=== PATIENT | male | born 1965 | race Two or more races ===

== ENCOUNTER 2020-03-19 13:22 | Inpatient (IN) | payer MEDICAID, OTHER ==
[~2020-03-19] VITALS: Ht 175.3 cm; Wt 71.4 kg
[2020-03-19] MEDS ORDERED: SODIUM CHLORIDE 0.9% 1,000ML IVBOLUS ONE (14:00)
--- NOTE | 2020-03-19 14:12 | NUR ---
PIV PLACED. LABS DRAWN. IVF RUNNING PER APR. WARM BLANKETS PROVIDED.
[2020-03-19 14:20] LABS: BASOPHILS % (AUTO) 1 % (0-1); EOSINOPHILS % (AUTO) 0 % (1-7); LYMPHOCYTES % (AUTO) 5 % (22-44); MEAN CORPUSCULAR HEMOGLOBIN 31.4 pg (27.5-34.5); MEAN CORPUSCULAR HGB CONC 34.2 g/dL (33.2-36.2); MEAN PLATELET VOLUME 7.5 fL (7.4-10.4); MONOCYTES % (AUTO) 4 % (2-9); NEUTROPHILS % (AUTO) 90 % (42-75); PLATELET COUNT 170 x10^3/uL (130-400); RED BLOOD COUNT 1.92 x10^6/uL (4.38-5.82); RED CELL DISTRIBUTION WIDTH 13.4 % (9.4-14.8)
--- NOTE | 2020-03-19 14:25 | NUR ---
PT PROVIDED URINE SAMPLE. UA COLLECTED AND SENT TO LAB.
[2020-03-19 14:34] LABS: ALANINE AMINOTRANSFERASE 27 U/L (12-78); ALBUMIN 2.6 g/dL (3.4-5.0); ANION GAP 17 mmol/L (5-15); CALCIUM 7.6 mg/dL (8.5-10.1); CHLORIDE 105 mmol/L (98-107)
[2020-03-19 14:37] LABS: MD NO
[2020-03-19 14:42] LABS: ALKALINE PHOSPHATASE 94 U/L (45-117); BILIRUBIN,TOTAL 0.4 mg/dL (0.2-1.0); TOTAL PROTEIN 6.4 g/dL (6.4-8.2)
[2020-03-19 14:44] LABS: MICROSCOPIC AUTO
[2020-03-19 14:50] LABS: TROPONIN I 0.431 ng/mL (0.000-0.045)
--- NOTE | 2020-03-19 14:52 | NUR ---
SECOND PIV PLACED. 2 SETS BLOOD CX DRAWN AND COLLECTED BY LAB. AT BEDSIDE TO UPDATE PT ON POC.
[2020-03-19] MEDS ORDERED: CEFDINIR 300 MG CAPSULE PO ONE (15:30)
[2020-03-19] MEDS ORDERED: METOPROLOL 1 MG/ML, 5ML IVPush PRN (15:30)
[2020-03-19] MEDS ORDERED: CEFDINIR 300 MG CAPSULE ONE (15:36)
[2020-03-19] MEDS ORDERED: METOPROLOL 1 MG/ML, 5ML ONE (15:36)
--- NOTE | 2020-03-19 15:49 | NUR ---
IR AT BEDSIDE. MD WANG FOR BLOOD TO BE TRANFUSED DURING DIALYSIS.
--- NOTE | 2020-03-19 15:50 | NUR ---
VIDEO UNIFORM PATROL POLICE OFFICER AT BEDSIDE.
[2020-03-19 15:51] LABS: INTERNATIONAL NORMALIZED RATIO 1.01 (0.93-1.1); PROTHROMBIN TIME 10.8 Seconds (9.6-11.5)
--- NOTE | 2020-03-19 15:51 | NUR ---
PT CONNECTED TO CARDIAC MONITORING SINCE UPON ARRIVAL.
--- NOTE | 2020-03-19 15:58 | NUR ---
PT REFUSING DIALYSIS PORT FROM IR. FAITH BACK AT BEDSIDE.
[2020-03-19 16:06] LABS: CHLORIDE,URINE RANDOM 47 mmol/L; POTASSIUM,URINE RANDOM 41 mmol/L; SODIUM,URINE RANDOM 38 mmol/L
[2020-03-19] MEDS ORDERED: LORazepam 2 MG/ML, 1ML ONE (16:06)
--- NOTE | 2020-03-19 16:11 | NUR ---
RECEIVED VO FROM DR SAGE FOR ATIVAN 1MG IV ONCE. MEDS ADMIN PER ORDER.
--- NOTE | 2020-03-19 16:12 | NUR ---
DR SAGE STATES TO ADMIN BLOOD WITH DIALYSIS. HOSPITALIST AT BEDSIDE.
[2020-03-19 16:17] LABS: CREATININE,URINE RANDOM 85.5 mg/dL
[2020-03-19] MEDS ORDERED: FUROSEMIDE 40 MG/4 ML ONE (16:17)
[2020-03-19] MEDS ORDERED: SODIUM BICARB IV STA (16:17)
[2020-03-19] MEDS ORDERED: CALCIUM CHLORIDE 10%, 10ML SYR ONE (16:25)
[2020-03-19] MEDS ORDERED: DEXTROSE 50%, 50ML SYRINGE ONE (16:25)
[2020-03-19] MEDS ORDERED: INSULIN SINGLE DOSE, ER ONE (16:25)
[2020-03-19] MEDS ORDERED: SODIUM BICARB 8.4%, 50ML SYRINGE ONE (16:25)
[2020-03-19] MEDS ORDERED: DEXTROSE 50%, 50ML SYRINGE IVPush ONE (16:30)
[2020-03-19] MEDS ORDERED: CALCIUM CHLORIDE 10%, 10ML SYR IVPush ONE (16:30)
[2020-03-19] MEDS ORDERED: LORazepam 2 MG/ML, 1ML IVPush ONE (16:30)
[2020-03-19] MEDS ORDERED: SODIUM BICARB 8.4%, 50ML SYRINGE IVPush ONE (16:30)
[2020-03-19] MEDS ORDERED: FUROSEMIDE 40 MG/4 ML IV ONE (16:30)
[2020-03-19] MEDS ORDERED: ALBUTEROL 0.5%, 20ML NPPB ONE (16:30)
[2020-03-19] MEDS ORDERED: INSULIN REGULAR 100 UNITS/ML, 3ML VIAL IVPush ONE (16:30)
[2020-03-19] MEDS ORDERED: ONDANSETRON 2MG/ML, 2ML IVPush PRN (17:00)
[2020-03-19] MEDS ORDERED: BISACODYL 10 MG SUPP PR PRN (17:00)
[2020-03-19] MEDS ORDERED: ONDANSETRON ODT 4 MG PO PRN (17:00)
[2020-03-19] MEDS ORDERED: POLYETHYLENE GLYCOL 17 GM PACKET PO PRN (17:00)
[2020-03-19] MEDS ORDERED: ACETAMINOPHEN 325 MG TABLET PO PRN (17:00)
[2020-03-19] MEDS ORDERED: HYDROcodone/APAP 5/325 TABLET PO PRN (17:00)
[2020-03-19] MEDS ORDERED: PHARMACY MAY ADJ FOR RENAL FX MC PRN (17:00)
[2020-03-19 17:22] LABS: CALCIUM 8.3 mg/dL (8.5-10.1)
[2020-03-19 17:26] LABS: ABSOLUTE RETICS # 0.082 x10^6/uL (0.5-1.5); RED BLOOD COUNT 1.76 x10^6/uL (4.38-5.82); RETICULOCYTE COUNT % 4.64 % (0.5-1.5)
[2020-03-19] MEDS ORDERED: ARANESP 200 MCG/ML **ESRD SQ SCH (17:30)
[2020-03-19] MEDS ORDERED: ALBUTEROL SULFATE 2.5 MG/3 ML ONE (17:37)
--- NOTE | 2020-03-19 17:46 | NUR ---
REPORT GIVEN TO CL HERNANDES. PT MOVED TO TRAUMA ROOM.
--- NOTE | 2020-03-19 17:46 | NUR ---
UPON FIRST CONTACT WITH PT, PT IS DYSPNEIC AT RATE 30'S, STATES SOB BEGAN DURING DIALYSIS CATH INSERTION. MD SAGE NOTIFIED. PT MOVED TO TRAUMA ROOM 41 FOR CLOSER MONITORING. MD SAGE HAS NOW SIGNED OUT TO MD BRAGA, PER MD BRAGA RN IS TO HOLD BLOOD TRANSFUSION AT THIS TIME PT IS MARKEDLY FLUID OVERLOADED. PT DENIES SOB. PT IS A&OX4. VERBAL ORDERS RECEIVED FOR COTE INSERTION AND ALBUTEROL NEB TX. DIALYSIS HAS BEEN CONTACTED MULTIPLE TIMES, NO ANSWER. TRAVELING PHLEBOTOMIST IS CONFIRMED TO BE WITH ANOTHER PATIENT IN HOUSE. MANAGER USER INTERFACE NOTIFIED, AWAITING TIME ESTIMATE REGARDING AVAILABILITY OF TRAVELING PHLEBOTOMIST FOR EMERGENT DIALYSIS. FSBS RECHECKED, 123.
--- NOTE | 2020-03-19 17:51 | NUR ---
[facility] PH [phone]. PTS DAUGHTER IS FLYING IN TOMORROW MORNING. KATJA SANTANA PH [phone].
[2020-03-19] MEDS ORDERED: ALBUTEROL 0.5%, 20ML ONE (17:55)
[2020-03-19] MEDS ORDERED: CEFTRIAXONE PMX 1GM/50ML 50 ML ONE (17:55)
[2020-03-19] MEDS ORDERED: ALBUTEROL SULFATE 2.5 MG/3 ML NPPB SCH (18:00)
[2020-03-19] MEDS ORDERED: NITROGLYCERIN SINGLE TAB 0.4 MG SL ONE ×2 (18:00→18:04)
[2020-03-19] MEDS: CEFTRIAXONE PMX 1GM/50ML 50 ML IV SCH (18:01)
[2020-03-19] MEDS ORDERED: LIDOCAINE 2%,20 ML JEL.PF.APP MM ONE (18:06)
--- NOTE | 2020-03-19 18:29 | NUR ---
neb tx complete. pt a&o, resps even and unlabored. resps even and unlabored. nsr on panel monitor with no ectopy. rocephin gtt initiated after blood cx drawn x 2. call light in reach. resps rate 20-30.
--- NOTE | 2020-03-19 18:44 | NUR ---
brooks cath inserted by task RN Remy, observed by this RN. brooks is 14 f coude tip. pt tolerated well. pt's room on med [employer] is being cleaned, awaiting readiness prior to pt transport. multiple knife edge trimmer operator aware of pt and orders to dialyze.
--- NOTE | 2020-03-19 19:00 | NUR ---
DENTAL LABORATORY TECHNICIAN APPRENTICE COORDINATED WITH HOUSE SUP AND DEALER CARD ROOM, DEALER CARD ROOM TO COME TO ED TO DIALYZE PT SHORTLY. REPORT GIVEN AT BEDSIDE TO GRETA MELENDEZ. PT A&O, RESPS EVEN AND UNLABORED, NSR ON BUILDING RIGGER, NO ECTOPY. PT ABLE TO SPEAK IN FULL SENTENCES WITHOUT DIFFICULTY, RESPIRATORY EFFORT IMPROVED SIGNIFICANTLY. CALL LIGHT IN REACH. PT HAS NO COMPLAINT AT THIS TIME.
--- NOTE | 2020-03-19 19:30 | NUR ---
RN WAS TOLD BY OF GOING PT RN THAT BLOOD AND MEDS ARE TO BE HELD UNTIL PT RECIEVES DIALYSIS PER PROVIDER.
--- NOTE | 2020-03-19 20:40 | NUR ---
CHINESE HERBALIST IN WITH PT
[2020-03-19 20:41] LABS: TROPONIN I 0.521 ng/mL (0.000-0.045)
[2020-03-19 21:23] VITALS: BP 147/85
[2020-03-19 21:38] VITALS: BP 138/79
--- NOTE | 2020-03-19 21:39 | NUR ---
BLOOD PROVIDED TO AREA MECHANIC WITH STRAPPING MACHINE TENDER SERGE PHILIP BLOOD WITH AREA MECHANIC
[2020-03-19 21:56] VITALS: BP 144/85
[2020-03-19 22:12] VITALS: BP 156/79
--- NOTE | 2020-03-19 23:02 | NUR ---
PT HAD A TOTAL OF 2L TAKEN OFF AT DIALYSIS PER RENAL RN. PT A/O X4 WITH UMLABORED BREATHING.
--- NOTE | 2020-03-19 23:02 | NUR ---
PT REPORT GIVEN TO ROSARIO HERNANDES ON TELE. PT WILL GO TO CT ON WAY TO 093
[2020-03-19] MEDS ORDERED: OMNIPAQUE 350 MG/ML, 75ML BOTTLE ONE (23:24)
[2020-03-19] MEDS: LISINOPRIL 20 MG TABLET PO SCH (23:40)
[2020-03-19] MEDS: DOXYCYCLINE 100MG TABLET PO SCH (23:40)
[2020-03-20] VITALS (9 sets, daily range): BP systolic 149–185; BP diastolic 81–95
[2020-03-20 06:23] LABS: BASOPHILS % (AUTO) 1 % (0-1); EOSINOPHILS % (AUTO) 1 % (1-7); LYMPHOCYTES % (AUTO) 15 % (22-44); MEAN CORPUSCULAR HEMOGLOBIN 30.9 pg (27.5-34.5); MEAN CORPUSCULAR HGB CONC 34.7 g/dL (33.2-36.2); MEAN PLATELET VOLUME 7.7 fL (7.4-10.4); MONOCYTES % (AUTO) 10 % (2-9); NEUTROPHILS % (AUTO) 74 % (42-75); PLATELET COUNT 139 x10^3/uL (130-400); RED CELL DISTRIBUTION WIDTH 14.5 % (9.4-14.8)
[2020-03-20 06:25] LABS: ALANINE AMINOTRANSFERASE 29 U/L (12-78); ALBUMIN 2.1 g/dL (3.4-5.0); ANION GAP 13 mmol/L (5-15); CALCIUM 7.3 mg/dL (8.5-10.1); CHLORIDE 101 mmol/L (98-107)
[2020-03-20 06:26] LABS: MD NO
[2020-03-20 06:28] LABS: ALKALINE PHOSPHATASE 83 U/L (45-117); BILIRUBIN,TOTAL 0.6 mg/dL (0.2-1.0); TOTAL PROTEIN 5.4 g/dL (6.4-8.2)
[2020-03-20 06:37] LABS: TROPONIN I 0.836 ng/mL (0.000-0.045)
[2020-03-20] MEDS: LISINOPRIL 20 MG TABLET PO SCH ×2 (10:52→20:14)
[2020-03-20] MEDS: SENNA/DOCUSATE TABLET PO SCH (10:52)
[2020-03-20] MEDS: DOXYCYCLINE 100MG TABLET PO SCH ×2 (10:52→20:14)
[2020-03-20] MEDS: FUROSEMIDE 40 MG TABLET PO SCH (10:52)
[2020-03-20] MEDS: ERGOCALCIFEROL 50,000 UNIT CAPSULE PO SCH (11:41)
[2020-03-20] MEDS: IRON SUCROSE COMPLEX 100MG/5ML IV SCH (11:41)
[2020-03-20] MEDS: SEVELAMER CARBONATE 800MG TAB PO SCH ×2 (12:10→18:33)
[2020-03-20 12:31] LABS: TROPONIN I 0.682 ng/mL (0.000-0.045)
[2020-03-20] MEDS ORDERED: SODIUM CHLORIDE 0.9% 1,000 ML IVBOLUS PRN (17:30)
[2020-03-20 17:58] LABS: ALBUMIN 2.2 g/dL (3.4-5.0); ANION GAP 9 mmol/L (5-15); CALCIUM 7.4 mg/dL (8.5-10.1); CHLORIDE 100 mmol/L (98-107)
[2020-03-20 18:02] LABS: TROPONIN I 0.616 ng/mL (0.000-0.045)
[2020-03-20] MEDS: CEFTRIAXONE PMX 1GM/50ML 50 ML IV SCH (18:33)
[2020-03-21 00:33] VITALS: BP 156/84
[2020-03-21 06:22] LABS: BASOPHILS % (AUTO) 1 % (0-1); EOSINOPHILS % (AUTO) 1 % (1-7); LYMPHOCYTES % (AUTO) 11 % (22-44); MEAN CORPUSCULAR HEMOGLOBIN 31.2 pg (27.5-34.5); MEAN CORPUSCULAR HGB CONC 34.8 g/dL (33.2-36.2); MEAN PLATELET VOLUME 7.5 fL (7.4-10.4); MONOCYTES % (AUTO) 13 % (2-9); NEUTROPHILS % (AUTO) 75 % (42-75); PLATELET COUNT 140 x10^3/uL (130-400); RED BLOOD COUNT 2.37 x10^6/uL (4.38-5.82); RED CELL DISTRIBUTION WIDTH 14.1 % (9.4-14.8)
[2020-03-21 06:32] LABS: MD NO
[2020-03-21 06:36] LABS: ANION GAP 10 mmol/L (5-15); CALCIUM 7.1 mg/dL (8.5-10.1); CHLORIDE 99 mmol/L (98-107)
[2020-03-21 06:39] LABS: ALANINE AMINOTRANSFERASE 33 U/L (12-78); ALKALINE PHOSPHATASE 76 U/L (45-117); BILIRUBIN,TOTAL 0.5 mg/dL (0.2-1.0)
[2020-03-21 07:21] VITALS: BP 147/80
[2020-03-21] MEDS: SENNA/DOCUSATE TABLET PO SCH (09:14)
[2020-03-21] MEDS: DOXYCYCLINE 100MG TABLET PO SCH ×2 (09:15→20:13)
[2020-03-21] MEDS: SEVELAMER CARBONATE 800MG TAB PO SCH ×3 (09:15→17:20)
[2020-03-21] MEDS: LISINOPRIL 20 MG TABLET PO SCH ×2 (09:15→20:13)
[2020-03-21] MEDS: FUROSEMIDE 40 MG TABLET PO SCH (09:15)
[2020-03-21] MEDS: IRON SUCROSE COMPLEX 100MG/5ML IV SCH (09:16)
[2020-03-21 15:00] VITALS: BP 166/93
[2020-03-21] MEDS: HEPARIN 5,000 UNITS/ML, 1ML SQ SCH (17:20)
[2020-03-21] MEDS: CALCITRIOL 0.25 MCG CAPSULE PO SCH (17:20)
[2020-03-21] MEDS: CEFTRIAXONE PMX 1GM/50ML 50 ML IV SCH (17:20)
[2020-03-21 20:00] VITALS: BP 149/92
[2020-03-22] MEDS: HEPARIN 5,000 UNITS/ML, 1ML SQ SCH ×2 (00:40→08:31)
[2020-03-22 01:56] VITALS: BP 150/86
[2020-03-22 05:13] LABS: ANION GAP 7 mmol/L (5-15); CALCIUM 7.4 mg/dL (8.5-10.1); CHLORIDE 102 mmol/L (98-107); CREATININE 9.36 mg/dL (0.7-1.3)
[2020-03-22 05:35] LABS: BASOPHILS % (AUTO) 1 % (0-1); EOSINOPHILS % (AUTO) 1 % (1-7); LYMPHOCYTES % (AUTO) 16 % (22-44); MEAN CORPUSCULAR HEMOGLOBIN 30.8 pg (27.5-34.5); MEAN CORPUSCULAR HGB CONC 34.2 g/dL (33.2-36.2); MEAN PLATELET VOLUME 7.9 fL (7.4-10.4); MONOCYTES % (AUTO) 13 % (2-9); NEUTROPHILS % (AUTO) 69 % (42-75); PLATELET COUNT 161 x10^3/uL (130-400); RED BLOOD COUNT 2.63 x10^6/uL (4.38-5.82); RED CELL DISTRIBUTION WIDTH 13.9 % (9.4-14.8)
[2020-03-22 06:35] VITALS: BP 168/94
[2020-03-22 06:36] LABS: MD SCAN
[2020-03-22] MEDS: CALCITRIOL 0.25 MCG CAPSULE PO SCH (08:30)
[2020-03-22] MEDS: SEVELAMER CARBONATE 800MG TAB PO SCH ×3 (08:30→17:15)
[2020-03-22] MEDS: DOXYCYCLINE 100MG TABLET PO SCH ×2 (08:30→20:04)
[2020-03-22] MEDS: IRON SUCROSE COMPLEX 100MG/5ML IV SCH (08:31)
[2020-03-22] MEDS: LISINOPRIL 20 MG TABLET PO SCH ×2 (08:31→20:05)
[2020-03-22] MEDS: FUROSEMIDE 40 MG TABLET PO SCH (08:31)
[2020-03-22] MEDS: SENNA/DOCUSATE TABLET PO SCH (08:32)
[2020-03-22 10:13] LABS: OCCULT BLOOD POSITIVE (NEGATIVE)
[2020-03-22 11:45] VITALS: BP 169/92
[2020-03-22] MEDS: CEFTRIAXONE PMX 1GM/50ML 50 ML IV SCH (17:15)
[2020-03-22 19:55] VITALS: BP 175/95
[2020-03-23] VITALS (8 sets, daily range): BP systolic 144–174; BP diastolic 80–96
[2020-03-23 05:06] LABS: ANION GAP 3 mmol/L (5-15); CALCIUM 7.6 mg/dL (8.5-10.1); CHLORIDE 103 mmol/L (98-107); CREATININE 6.09 mg/dL (0.7-1.3)
[2020-03-23 05:14] LABS: ABSOLUTE RETICS # 0.112 x10^6/uL (0.5-1.5); BASOPHILS % (AUTO) 1 % (0-1); EOSINOPHILS % (AUTO) 2 % (1-7); LYMPHOCYTES % (AUTO) 14 % (22-44); MEAN CORPUSCULAR HGB CONC 34.6 g/dL (33.2-36.2); MONOCYTES % (AUTO) 12 % (2-9); NEUTROPHILS % (AUTO) 71 % (42-75); PLATELET COUNT 182 x10^3/uL (130-400); RED BLOOD COUNT 2.74 x10^6/uL (4.38-5.82); RED CELL DISTRIBUTION WIDTH 13.8 % (9.4-14.8); RETICULOCYTE COUNT % 4.07 % (0.5-1.5)
[2020-03-23 06:00] LABS: MD SCAN
[2020-03-23] MEDS ORDERED: CALCITRIOL 0.25 MCG CAPSULE PO SCH (09:00)
[2020-03-23] MEDS: LISINOPRIL 20 MG TABLET PO SCH ×2 (09:12→21:22)
[2020-03-23] MEDS: FUROSEMIDE 40 MG TABLET PO SCH (09:12)
[2020-03-23] MEDS: SEVELAMER CARBONATE 800MG TAB PO SCH ×3 (09:13→17:08)
[2020-03-23] MEDS: SENNA/DOCUSATE TABLET PO SCH (09:13)
[2020-03-23] MEDS: CALCITRIOL 0.25 MCG CAPSULE PO SCH (09:13)
[2020-03-23] MEDS: DOXYCYCLINE 100MG TABLET PO SCH ×2 (09:13→21:22)
[2020-03-23] MEDS: IRON SUCROSE COMPLEX 100MG/5ML IV SCH (09:14)
[2020-03-23 10:16] LABS: QUANTIFERON TB Ag1-NIL 0.47 (0.000-0.000)
[2020-03-23] MEDS ORDERED: MIDAZOLAM 1 MG/ML, 5ML ONE (13:42)
[2020-03-23] MEDS ORDERED: FENTANYL PF 100 MCG/2ML ONE (13:42)
[2020-03-23] MEDS ORDERED: FLUMAZENIL 0.1 MG/1 ML, 5ML ONE (13:43)
[2020-03-23] MEDS ORDERED: NALOXONE 1 MG/ML, 2ML ONE (13:43)
[2020-03-23] MEDS ORDERED: LIDOCAINE 1%, 20ML ONE (13:50)
[2020-03-23] MEDS ORDERED: ARANESP 200 MCG/ML **ESRD SQ SCH (14:02)
[2020-03-23] MEDS: CEFTRIAXONE PMX 1GM/50ML 50 ML IV SCH (17:08)
[2020-03-23] MEDS: LABETALOL 5MG/ML, 20ML IVPush PRN (17:36)
[2020-03-24 01:11] VITALS: BP 165/89
[2020-03-24 07:17] LABS: BASOPHILS % (AUTO) 1 % (0-1); EOSINOPHILS % (AUTO) 3 % (1-7); LYMPHOCYTES % (AUTO) 14 % (22-44); MEAN CORPUSCULAR HEMOGLOBIN 30.9 pg (27.5-34.5); MEAN CORPUSCULAR HGB CONC 33.7 g/dL (33.2-36.2); MEAN PLATELET VOLUME 8.1 fL (7.4-10.4); MONOCYTES % (AUTO) 14 % (2-9); NEUTROPHILS % (AUTO) 68 % (42-75); PLATELET COUNT 194 x10^3/uL (130-400); RED BLOOD COUNT 2.76 x10^6/uL (4.38-5.82); RED CELL DISTRIBUTION WIDTH 13.9 % (9.4-14.8)
[2020-03-24 07:18] LABS: MD NO
[2020-03-24 07:20] LABS: ANION GAP 9 mmol/L (5-15); CALCIUM 7.4 mg/dL (8.5-10.1); CHLORIDE 104 mmol/L (98-107)
[2020-03-24 07:21] LABS: CREATININE 9.85 mg/dL (0.7-1.3)
[2020-03-24 08:05] VITALS: BP 165/74
[2020-03-24] MEDS: CALCITRIOL 0.25 MCG CAPSULE PO SCH (09:27)
[2020-03-24] MEDS: FUROSEMIDE 40 MG TABLET PO SCH (09:27)
[2020-03-24] MEDS: SEVELAMER CARBONATE 800MG TAB PO SCH ×3 (09:27→17:52)
[2020-03-24] MEDS: DOXYCYCLINE 100MG TABLET PO SCH ×2 (09:27→20:26)
[2020-03-24] MEDS: IRON SUCROSE COMPLEX 100MG/5ML IV SCH (09:28)
[2020-03-24] MEDS: LISINOPRIL 20 MG TABLET PO SCH ×2 (09:36→20:26)
[2020-03-24] MEDS: SENNA/DOCUSATE TABLET PO SCH (09:36)
[2020-03-24 14:43] VITALS: BP 158/87
[2020-03-24] MEDS: CEFTRIAXONE PMX 1GM/50ML 50 ML IV SCH (17:52)
[2020-03-24 20:25] VITALS: BP 165/96
[2020-03-25 02:30] VITALS: BP 160/91
[2020-03-25 05:55] LABS: BASOPHILS % (AUTO) 1 % (0-1); EOSINOPHILS % (AUTO) 2 % (1-7); LYMPHOCYTES % (AUTO) 13 % (22-44); MD NO; MEAN CORPUSCULAR HEMOGLOBIN 31.5 pg (27.5-34.5); MEAN CORPUSCULAR HGB CONC 34.5 g/dL (33.2-36.2); MEAN PLATELET VOLUME 8.1 fL (7.4-10.4); MONOCYTES % (AUTO) 12 % (2-9); NEUTROPHILS % (AUTO) 72 % (42-75); PLATELET COUNT 209 x10^3/uL (130-400); RED BLOOD COUNT 3.01 x10^6/uL (4.38-5.82); RED CELL DISTRIBUTION WIDTH 14.4 % (9.4-14.8)
[2020-03-25 06:11] LABS: ALBUMIN 2.3 g/dL (3.4-5.0); CHLORIDE 97 mmol/L (98-107)
[2020-03-25 06:13] LABS: ANION GAP 10 mmol/L (5-15); CREATININE 7.88 mg/dL (0.7-1.3)
[2020-03-25 07:52] VITALS: BP 151/68
[2020-03-25] MEDS: SEVELAMER CARBONATE 800MG TAB PO SCH ×3 (08:32→16:36)
[2020-03-25] MEDS: SENNA/DOCUSATE TABLET PO SCH (08:32)
[2020-03-25] MEDS: CALCITRIOL 0.25 MCG CAPSULE PO SCH (08:32)
[2020-03-25] MEDS: IRON SUCROSE COMPLEX 100MG/5ML IV SCH (08:33)
[2020-03-25] MEDS: FUROSEMIDE 40 MG TABLET PO SCH (08:33)
[2020-03-25] MEDS: LISINOPRIL 20 MG TABLET PO SCH ×2 (08:33→20:58)
[2020-03-25 12:52] VITALS: BP 165/90
[2020-03-25 20:55] VITALS: BP 168/87
[2020-03-26 02:14] VITALS: BP 148/83
[2020-03-26 05:06] LABS: BASOPHILS % (AUTO) 1 % (0-1); EOSINOPHILS % (AUTO) 2 % (1-7); LYMPHOCYTES % (AUTO) 13 % (22-44); MEAN CORPUSCULAR HEMOGLOBIN 31.6 pg (27.5-34.5); MONOCYTES % (AUTO) 13 % (2-9); NEUTROPHILS % (AUTO) 71 % (42-75); PLATELET COUNT 216 x10^3/uL (130-400); RED BLOOD COUNT 2.84 x10^6/uL (4.38-5.82); RED CELL DISTRIBUTION WIDTH 14.5 % (9.4-14.8)
[2020-03-26 05:10] LABS: MD NO
[2020-03-26 05:12] LABS: ALBUMIN 2.1 g/dL (3.4-5.0); ANION GAP 10 mmol/L (5-15); CALCIUM 7.4 mg/dL (8.5-10.1); CHLORIDE 98 mmol/L (98-107)
[2020-03-26] MEDS: FUROSEMIDE 40 MG TABLET PO SCH (08:59)
[2020-03-26] MEDS: IRON SUCROSE COMPLEX 100MG/5ML IV SCH (08:59)
[2020-03-26] MEDS: LISINOPRIL 20 MG TABLET PO SCH ×2 (09:00→23:10)
[2020-03-26] MEDS: SENNA/DOCUSATE TABLET PO SCH (09:00)
[2020-03-26] MEDS: CALCITRIOL 0.25 MCG CAPSULE PO SCH (09:00)
[2020-03-26] MEDS: SEVELAMER CARBONATE 800MG TAB PO SCH ×3 (09:00→17:32)
[2020-03-26 09:40] VITALS: BP 143/88
[2020-03-26 15:50] VITALS: BP 156/78
[2020-03-26 19:10] VITALS: BP 166/89
[2020-03-27 01:22] VITALS: BP 159/78
[2020-03-27] MEDS ORDERED: IBUPROFEN 200 MG TABLET PO PRN (04:30)
[2020-03-27 06:11] LABS: ALBUMIN 2.1 g/dL (3.4-5.0); CHLORIDE 102 mmol/L (98-107)
[2020-03-27 06:12] LABS: ANION GAP 8 mmol/L (5-15); CALCIUM 7.8 mg/dL (8.5-10.1); CREATININE 7.51 mg/dL (0.7-1.3)
[2020-03-27 08:00] VITALS: BP 152/68
[2020-03-27] MEDS: FUROSEMIDE 40 MG TABLET PO SCH (08:03)
[2020-03-27] MEDS: CALCITRIOL 0.25 MCG CAPSULE PO SCH (08:03)
[2020-03-27] MEDS: SEVELAMER CARBONATE 800MG TAB PO SCH ×3 (08:03→17:29)
[2020-03-27] MEDS: IRON SUCROSE COMPLEX 100MG/5ML IV SCH (08:03)
[2020-03-27] MEDS: LISINOPRIL 20 MG TABLET PO SCH ×3 (08:04→21:25)
[2020-03-27] MEDS: SENNA/DOCUSATE TABLET PO SCH (08:04)
[2020-03-27 09:22] VITALS: BP 174/93
[2020-03-27] MEDS: ERGOCALCIFEROL 50,000 UNIT CAPSULE PO SCH (11:40)
[2020-03-27 13:05] VITALS: BP 166/81
[2020-03-27] MEDS ORDERED: ARANESP 200 MCG/ML **ESRD SQ SCH (14:30)
[2020-03-27 20:44] VITALS: BP 170/82
[2020-03-28 01:42] VITALS: BP 160/78
[2020-03-28 06:32] LABS: BASOPHILS % (AUTO) 1 % (0-1); EOSINOPHILS % (AUTO) 1 % (1-7); LYMPHOCYTES % (AUTO) 16 % (22-44); MEAN CORPUSCULAR HEMOGLOBIN 31.8 pg (27.5-34.5); MEAN CORPUSCULAR HGB CONC 33.6 g/dL (33.2-36.2); MEAN PLATELET VOLUME 7.8 fL (7.4-10.4); MONOCYTES % (AUTO) 17 % (2-9); NEUTROPHILS % (AUTO) 65 % (42-75); PLATELET COUNT 209 x10^3/uL (130-400); RED BLOOD COUNT 2.78 x10^6/uL (4.38-5.82); RED CELL DISTRIBUTION WIDTH 15.6 % (9.4-14.8)
[2020-03-28 06:33] LABS: MD NO
[2020-03-28 06:39] LABS: ALBUMIN 1.9 g/dL (3.4-5.0); ANION GAP 12 mmol/L (5-15); CALCIUM 7.5 mg/dL (8.5-10.1); CHLORIDE 99 mmol/L (98-107)
[2020-03-28 07:00] VITALS: BP 170/78
[2020-03-28] MEDS: SENNA/DOCUSATE TABLET PO SCH (09:00)
[2020-03-28] MEDS: IRON SUCROSE COMPLEX 100MG/5ML IV SCH (09:37)
[2020-03-28] MEDS: SEVELAMER CARBONATE 800MG TAB PO SCH ×3 (09:37→17:56)
[2020-03-28] MEDS: FUROSEMIDE 40 MG TABLET PO SCH (09:37)
[2020-03-28] MEDS: CALCITRIOL 0.25 MCG CAPSULE PO SCH (09:37)
[2020-03-28] MEDS: LISINOPRIL 20 MG TABLET PO SCH ×2 (09:38→21:19)
[2020-03-28 13:20] VITALS: BP 200/97
[2020-03-28] MEDS: hydrALAzine 20 MG/ML, 1ML IVPush PRN (13:24)
[2020-03-28 19:33] VITALS: BP 169/78
[2020-03-28 21:17] VITALS: BP 162/89
[2020-03-29 01:51] VITALS: BP 178/90
[2020-03-29] MEDS: hydrALAzine 20 MG/ML, 1ML IVPush PRN ×2 (01:58→15:12)
[2020-03-29 04:42] VITALS: BP 159/90
[2020-03-29 05:43] LABS: ALBUMIN 1.9 g/dL (3.4-5.0); ANION GAP 10 mmol/L (5-15); CALCIUM 7.6 mg/dL (8.5-10.1); CHLORIDE 100 mmol/L (98-107)
[2020-03-29 05:46] LABS: CREATININE 7.46 mg/dL (0.7-1.3)
[2020-03-29 05:55] LABS: BASOPHILS % (AUTO) 1 % (0-1); EOSINOPHILS % (AUTO) 1 % (1-7); LYMPHOCYTES % (AUTO) 17 % (22-44); MEAN CORPUSCULAR HEMOGLOBIN 32.2 pg (27.5-34.5); MEAN CORPUSCULAR HGB CONC 34.2 g/dL (33.2-36.2); MONOCYTES % (AUTO) 17 % (2-9); NEUTROPHILS % (AUTO) 65 % (42-75); PLATELET COUNT 213 x10^3/uL (130-400); RED BLOOD COUNT 2.76 x10^6/uL (4.38-5.82); RED CELL DISTRIBUTION WIDTH 17.2 % (9.4-14.8)
[2020-03-29 06:34] LABS: MD SCAN
[2020-03-29 07:41] VITALS: BP 161/77
[2020-03-29] MEDS ORDERED: SENNA/DOCUSATE TABLET PO PRN (09:00)
[2020-03-29] MEDS: LISINOPRIL 20 MG TABLET PO SCH ×2 (09:05→21:16)
[2020-03-29] MEDS: PYRIDOXINE (Vitamin B6) 50MG TAB PO SCH (09:05)
[2020-03-29] MEDS: SEVELAMER CARBONATE 800MG TAB PO SCH ×3 (09:05→18:03)
[2020-03-29] MEDS: FUROSEMIDE 40 MG TABLET PO SCH ×2 (09:05→18:05)
[2020-03-29] MEDS: ISONIAZID 300 MG TABLET PO SCH (09:06)
[2020-03-29] MEDS: IRON SUCROSE COMPLEX 100MG/5ML IV SCH (09:06)
[2020-03-29] MEDS: CALCITRIOL 0.25 MCG CAPSULE PO SCH (09:06)
[2020-03-29] MEDS ORDERED: ARANESP 200 MCG/ML **ESRD SQ SCH (10:44)
[2020-03-29 14:25] VITALS: BP 204/128
[2020-03-29] MEDS: LABETALOL 5MG/ML, 20ML IVPush PRN (14:55)
[2020-03-29 15:06] VITALS: BP 186/96
[2020-03-29] MEDS ORDERED: FUROSEMIDE 80 MG TABLET ONE (18:04)
[2020-03-29 21:13] VITALS: BP 159/82
[2020-03-30 00:59] VITALS: BP 194/102
[2020-03-30 05:29] LABS: BASOPHILS % (AUTO) 1 % (0-1); EOSINOPHILS % (AUTO) 1 % (1-7); LYMPHOCYTES % (AUTO) 13 % (22-44); MEAN CORPUSCULAR HEMOGLOBIN 32.6 pg (27.5-34.5); MEAN CORPUSCULAR HGB CONC 34.3 g/dL (33.2-36.2); MEAN PLATELET VOLUME 7.2 fL (7.4-10.4); MONOCYTES % (AUTO) 17 % (2-9); NEUTROPHILS % (AUTO) 67 % (42-75); PLATELET COUNT 233 x10^3/uL (130-400); RED BLOOD COUNT 2.71 x10^6/uL (4.38-5.82); RED CELL DISTRIBUTION WIDTH 16.9 % (9.4-14.8)
[2020-03-30 05:42] LABS: ANION GAP 13 mmol/L (5-15); CALCIUM 7.5 mg/dL (8.5-10.1); CHLORIDE 98 mmol/L (98-107)
[2020-03-30 05:44] LABS: MD NO
[2020-03-30 07:01] VITALS: BP 195/102
[2020-03-30] MEDS: PYRIDOXINE (Vitamin B6) 50MG TAB PO SCH (07:34)
[2020-03-30] MEDS: IRON SUCROSE COMPLEX 100MG/5ML IV SCH (07:35)
[2020-03-30] MEDS: FUROSEMIDE 40 MG TABLET PO SCH ×2 (07:35→17:16)
[2020-03-30] MEDS: LISINOPRIL 20 MG TABLET PO SCH ×2 (07:35→20:17)
[2020-03-30] MEDS: ISONIAZID 300 MG TABLET PO SCH (07:35)
[2020-03-30] MEDS: SEVELAMER CARBONATE 800MG TAB PO SCH ×3 (07:35→17:16)
[2020-03-30] MEDS: CALCITRIOL 0.25 MCG CAPSULE PO SCH (07:35)
[2020-03-30] MEDS: AMLODIPINE 10 MG TAB PO SCH (12:11)
[2020-03-30 12:34] VITALS: BP 187/102
[2020-03-30 21:00] VITALS: BP 147/74
[2020-03-31 02:42] VITALS: BP 158/83
[2020-03-31 05:55] LABS: BASOPHILS % (AUTO) 1 % (0-1); EOSINOPHILS % (AUTO) 1 % (1-7); LYMPHOCYTES % (AUTO) 15 % (22-44); MEAN CORPUSCULAR HEMOGLOBIN 32.3 pg (27.5-34.5); MEAN CORPUSCULAR HGB CONC 34.2 g/dL (33.2-36.2); MEAN PLATELET VOLUME 7.6 fL (7.4-10.4); MONOCYTES % (AUTO) 16 % (2-9); NEUTROPHILS % (AUTO) 67 % (42-75); PLATELET COUNT 230 x10^3/uL (130-400); RED BLOOD COUNT 2.72 x10^6/uL (4.38-5.82); RED CELL DISTRIBUTION WIDTH 17.9 % (9.4-14.8)
[2020-03-31 06:03] LABS: ANION GAP 15 mmol/L (5-15); CALCIUM 7.6 mg/dL (8.5-10.1); CHLORIDE 96 mmol/L (98-107)
[2020-03-31 06:25] LABS: MD SCAN
[2020-03-31 06:58] LABS: ANION GAP 15 mmol/L (5-15); CALCIUM 7.6 mg/dL (8.5-10.1); CHLORIDE 97 mmol/L (98-107)
[2020-03-31] MEDS: SEVELAMER CARBONATE 800MG TAB PO SCH ×3 (08:00→17:24)
[2020-03-31] MEDS: FUROSEMIDE 40 MG TABLET PO SCH (12:29)
[2020-03-31] MEDS: CALCITRIOL 0.25 MCG CAPSULE PO SCH (12:29)
[2020-03-31] MEDS: IRON SUCROSE COMPLEX 100MG/5ML IV SCH (12:29)
[2020-03-31] MEDS: PYRIDOXINE (Vitamin B6) 50MG TAB PO SCH (12:29)
[2020-03-31] MEDS: LISINOPRIL 20 MG TABLET PO SCH (12:29)
[2020-03-31] MEDS: AMLODIPINE 10 MG TAB PO SCH (12:30)
[2020-03-31] MEDS: ISONIAZID 300 MG TABLET PO SCH (12:30)
[2020-03-31 12:56] VITALS: BP 159/85
[2020-03-31] MEDS ORDERED: ISON300T10 PO (15:14)
[2020-03-31] MEDS ORDERED: PYRI50TA7 PO (15:14)
[2020-03-31] MEDS ORDERED: SEVE800T8 PO (15:14)
[2020-03-31] MEDS ORDERED: AMLO-211 PO (15:14)
[2020-03-31] MEDS ORDERED: LISI-170 PO (15:14)
[2020-04-03] MEDS ORDERED: ARANESP 200 MCG/ML **ESRD SQ SCH (17:00)
== END 2020-03-31 20:50 | disposition home or self-care (01) | DRG 469 ==
LOC: ED 14:30 → EDIP 17:36 → 4EST 23:27 → 4WST 03-21 10:10 → 5SO 03-23 22:43
PROVIDERS: ADMIT Internal Medicine; ATTEND Internal Medicine
PROC: 02HV33Z Insertion of Infusion Device into Superior Vena Cava, Percutaneous Approach (ICD-10-PCS; 2020-03-19)
PROC: B548ZZA Ultrasonography of Superior Vena Cava, Guidance (ICD-10-PCS; 2020-03-19)
PROC: 5A1D70Z Performance of Urinary Filtration, Intermittent, Less than 6 Hours Per Day (ICD-10-PCS; 2020-03-19)
PROC: 30233N1 Transfusion of Nonautologous Red Blood Cells into Peripheral Vein, Percutaneous Approach (ICD-10-PCS; 2020-03-19)
PROC: 0JH63XZ Insertion of Tunneled Vascular Access Device into Chest Subcutaneous Tissue and Fascia, Percutaneous Approach (ICD-10-PCS; principal; 2020-03-23)
PROC: 02HV33Z Insertion of Infusion Device into Superior Vena Cava, Percutaneous Approach (ICD-10-PCS; 2020-03-23)
PROC: B548ZZA Ultrasonography of Superior Vena Cava, Guidance (ICD-10-PCS; 2020-03-23)
DX: N17.9 Acute kidney failure, unspecified (principal); D50.9 Iron deficiency anemia, unspecified; D63.1 Anemia in chronic kidney disease; E04.1 Nontoxic single thyroid nodule; E83.51 Hypocalcemia; Z20.822 Contact with and (suspected) exposure to COVID-19; E87.1 Hypo-osmolality and hyponatremia; E87.2 Acidosis; E87.5 Hyperkalemia; F41.9 Anxiety disorder, unspecified; G93.41 Metabolic encephalopathy; I13.2 Hypertensive heart and chronic kidney disease with heart failure and with stage 5 chronic kidney disease, or end stage renal disease; I16.1 Hypertensive emergency; I50.23 Acute on chronic systolic (congestive) heart failure; I80.8 Phlebitis and thrombophlebitis of other sites; J18.9 Pneumonia, unspecified organism; K85.90 Acute pancreatitis without necrosis or infection, unspecified; N18.6 End stage renal disease; N30.90 Cystitis, unspecified without hematuria; Z22.7 Latent tuberculosis; Z99.2 Dependence on renal dialysis
CPT/HCPCS: 36415; 36430; 36556; 36558; 70450; 71045; 71275; 76536; 76770; 76937; 80048; 80053; 80069; 81001; 82040; 82140; 82272; 82306; 82310; 82330; 82436; 82570; 82728; 82962; 83540; 83550; 83605; 83615; 83690; 83735; 83880; 83970; 84100; 84133; 84145; 84156; 84300; 84443; 84484; 85014; 85018; 85025; 85045; 85379; 85610; 85730; 86140; 86480; 86705; 86706; 86803; 86850; 86900; 86923; 87015; 87040; 87086; 87116; 87206; 87340; 87635; 90935; 93005; 93306; 96374; 96375; 99156; 99157; 99291; C1894; G0378; J0696; J0882; J1644; J1756; J1940; J2250; J3010; Q9967; C1750; C1751; G0365; J0360; J1642; J1815; J2060; J2310; J7030; P9016; U0003

== ENCOUNTER 2020-05-10 17:58 | Inpatient (IN) | payer MEDICAID, OTHER ==
[~2020-05-10] VITALS: Ht 177.8 cm; Wt 71.3 kg
[~2020-05-10 17:58] MED LIST: AMLO-211 PO; ISON300T10 PO; LISI-170 PO; PYRI50TA PO; SEVE800T8 PO
--- NOTE | 2020-05-10 18:22 | NUR ---
CODE CARDIAC @ [id number] CARDS PAGED @ [id number]
[2020-05-10] MEDS ORDERED: ASPIRIN 325 MG TABLET PO STA (18:24)
--- NOTE | 2020-05-10 18:24 | NUR ---
ST ELVATION SUSPECTED ON EKG IN TRIAGE. PT TAKEN STRAIGHT TO T4. CARE ASSUMED BY MIGUEL A HERNANDES.
--- NOTE | 2020-05-10 18:25 | NUR ---
MARKETING PRODUCER: THIS IS A 54 YO M W/ C/O CP X4 DAYS. PT REPORTS DIALYSIS MWF, LAST WENT MONDAY. FISTUAL LT ARM. DIALYSIS PORT OBSERVED UPPR RT CHEST. PT C/O 11/29 INTERMITTENT PAIN. PT ACCOMPANIED BY FAMILY MEMBER. PRIMARILY BRUNEIAN SPEAKING.
[2020-05-10] MEDS ORDERED: NITROGLYCERIN SINGLE TAB 0.4 MG SL PRN (18:30)
--- NOTE | 2020-05-10 18:30 | NUR ---
PT TO CT AND COULD NOT LIE FLAT, PT GIVEN 4 MORPHINE. THENPT TO BIT SHARPENER OPERATOR AT 1900.
[2020-05-10] MEDS ORDERED: LIDOCAINE 2%, 20ML ONE (18:45)
[2020-05-10] MEDS ORDERED: TICAGRELOR 90 MG TABLET ONE (18:45)
[2020-05-10] MEDS ORDERED: MORPHINE SULFATE 4 MG/ML, 1ML ONE ×2 (18:45→23:39)
[2020-05-10] MEDS ORDERED: MIDAZOLAM 1 MG/ML, 5ML ONE (18:45)
[2020-05-10] MEDS ORDERED: HEPARIN 1,000 UNITS/ML, 10ML ONE (18:45)
[2020-05-10] MEDS ORDERED: BIVALIRUDIN 250 MG ONE (18:45)
[2020-05-10] MEDS ORDERED: FENTANYL PF 100 MCG/2ML ONE (18:45)
[2020-05-10 18:53] LABS: BASOPHILS % (AUTO) 1 % (0-1); EOSINOPHILS % (AUTO) 1 % (1-7); LYMPHOCYTES % (AUTO) 10 % (22-44); MEAN CORPUSCULAR HGB CONC 34.2 g/dL (33.2-36.2); MEAN PLATELET VOLUME 7.8 fL (7.4-10.4); MONOCYTES % (AUTO) 7 % (2-9); NEUTROPHILS % (AUTO) 82 % (42-75); PLATELET COUNT 189 x10^3/uL (130-400); RED CELL DISTRIBUTION WIDTH 15.6 % (9.4-14.8)
[2020-05-10 18:54] LABS: MD NO
[2020-05-10 18:56] LABS: INTERNATIONAL NORMALIZED RATIO 1.02 (0.93-1.1); PROTHROMBIN TIME 10.9 Seconds (9.6-11.5); TROPONIN I < 0.015 ng/mL (0.000-0.045)
[2020-05-10] MEDS ORDERED: MORPHINE SULFATE 4 MG/ML, 1ML IVPush PRN (19:00)
[2020-05-10] MEDS ORDERED: PLEASE ENTER HEIGHT AND WEIGHT MC SCH (19:00)
[2020-05-10] MEDS ORDERED: OMNIPAQUE 350 MG/ML, 100ML BOTTLE ONE (19:07)
[2020-05-10] MEDS ORDERED: ASPIRIN 81 MG TABLET CHEW ONE (19:14)
[2020-05-10 21:16] LABS: ALANINE AMINOTRANSFERASE 13 U/L (12-78); ALBUMIN 3.6 g/dL (3.4-5.0); ANION GAP 10 mmol/L (5-15); CALCIUM 8.8 mg/dL (8.5-10.1); CHLORIDE 96 mmol/L (98-107)
[2020-05-10 21:18] LABS: ALKALINE PHOSPHATASE 79 U/L (45-117); BILIRUBIN,TOTAL 0.4 mg/dL (0.2-1.0); TOTAL PROTEIN 7.7 g/dL (6.4-8.2)
[2020-05-10] MEDS ORDERED: NITROGLYCERIN 0.4 MG BOTTLE (25 TABS) SL ONE ×2 (23:43→23:47)
[2020-05-10 23:50] VITALS: BP 152/78
[2020-05-10 23:56] VITALS: BP 136/67
[2020-05-11] MEDS ORDERED: NITROGLYCERIN 0.4 MG/SPRAY SL PRN
[2020-05-11] MEDS ORDERED: MORPHINE SULFATE 4 MG/ML, 1ML IVPush ONE
[2020-05-11 00:03] VITALS: BP 132/69
[2020-05-11 00:57] LABS: TROPONIN I < 0.015 ng/mL (0.000-0.045)
[2020-05-11] MEDS ORDERED: hydrALAzine 20 MG/ML, 1ML IVPush PRN (01:00)
[2020-05-11] MEDS ORDERED: LIDODERM 5% PATCH TD PRN (01:00)
[2020-05-11] MEDS ORDERED: DOCUSATE 100 MG CAPSULE PO PRN (01:00)
[2020-05-11] MEDS ORDERED: NITROGLYCERIN 0.4 MG BOTTLE (25 TABS) SL PRN (01:00)
[2020-05-11] MEDS ORDERED: MELATONIN 5 MG TABLET PO PRN (01:00)
[2020-05-11 01:33] VITALS: BP 115/71
[2020-05-11] MEDS: ASPIRIN 325 MG TABLET EC PO SCH (06:09)
[2020-05-11] MEDS: HEPARIN 5,000 UNITS/ML, 1ML SQ SCH ×3 (06:09→20:21)
[2020-05-11] MEDS: ACETAMINOPHEN 325 MG TABLET PO PRN ×2 (06:09→13:41)
[2020-05-11 06:24] LABS: HCT (SEDRATE) 28.6 % (39.2-51.8)
[2020-05-11 06:29] LABS: TROPONIN I < 0.015 ng/mL (0.000-0.045)
[2020-05-11 06:48] VITALS: BP 136/77
[2020-05-11] MEDS: SEVELAMER CARBONATE 800MG TAB PO SCH ×3 (08:00→16:29)
[2020-05-11] MEDS: LISINOPRIL 40 MG TABLET PO SCH ×2 (09:00→20:21)
[2020-05-11] MEDS: ISONIAZID 300 MG TABLET PO SCH (09:00)
[2020-05-11] MEDS ORDERED: COLCHICINE 0.6 MG CAPSULE PO SCH (10:00)
[2020-05-11] MEDS ORDERED: ASPI-1026 PO ×2 (12:25)
[2020-05-11 12:42] VITALS: BP 110/68
[2020-05-11] MEDS: PYRIDOXINE (Vitamin B6) 50MG TAB PO SCH (12:42)
[2020-05-11] MEDS: AMLODIPINE 10 MG TAB PO SCH (12:42)
[2020-05-11] MEDS ORDERED: morphine SULFATE 10 MG/ML, 1ML ONE (14:42)
[2020-05-11] MEDS ORDERED: KETOROLAC 30 MG/1 ML IVPush STA (14:43)
[2020-05-11] MEDS ORDERED: MORPHINE SULFATE 4 MG/ML, 1ML IVPush PRN (15:00)
[2020-05-12] MEDS: ACETAMINOPHEN 325 MG TABLET PO PRN (02:00)
[2020-05-12 04:28] LABS: BASOPHILS % (AUTO) 1 % (0-1); EOSINOPHILS % (AUTO) 2 % (1-7); LYMPHOCYTES % (AUTO) 14 % (22-44); MEAN CORPUSCULAR HEMOGLOBIN 32.2 pg (27.5-34.5); MEAN CORPUSCULAR HGB CONC 34.4 g/dL (33.2-36.2); MEAN PLATELET VOLUME 7.3 fL (7.4-10.4); MONOCYTES % (AUTO) 11 % (2-9); NEUTROPHILS % (AUTO) 72 % (42-75); PLATELET COUNT 161 x10^3/uL (130-400); RED BLOOD COUNT 2.94 x10^6/uL (4.38-5.82); RED CELL DISTRIBUTION WIDTH 15.3 % (9.4-14.8)
[2020-05-12 04:29] LABS: MD NO
[2020-05-12 04:38] LABS: ANION GAP 5 mmol/L (5-15); CALCIUM 8.3 mg/dL (8.5-10.1); CHLORIDE 100 mmol/L (98-107); CREATININE 9.13 mg/dL (0.7-1.3)
[2020-05-12] MEDS: HEPARIN 5,000 UNITS/ML, 1ML SQ SCH ×3 (06:27→21:10)
[2020-05-12] MEDS: ASPIRIN 325 MG TABLET EC PO SCH ×3 (06:27→21:10)
[2020-05-12] MEDS: PYRIDOXINE (Vitamin B6) 50MG TAB PO SCH (08:08)
[2020-05-12] MEDS: SEVELAMER CARBONATE 800MG TAB PO SCH ×3 (08:09→16:24)
[2020-05-12] MEDS: AMLODIPINE 10 MG TAB PO SCH (08:09)
[2020-05-12] MEDS: LISINOPRIL 40 MG TABLET PO SCH (08:09)
[2020-05-12] MEDS: ISONIAZID 300 MG TABLET PO SCH (08:10)
[2020-05-12] MEDS ORDERED: KETOROLAC 30 MG/1 ML IVPush PRN (11:00)
[2020-05-12] MEDS: PANTOPRAZOLE 20MG TABLET PO SCH (12:28)
[2020-05-12] MEDS ORDERED: ARANESP 100 MCG/ML **ESRD SQ SCH (12:30)
[2020-05-12 13:11] VITALS: BP 96/57
[2020-05-12 19:12] VITALS: BP 104/62
[2020-05-13 02:34] VITALS: BP 112/58
[2020-05-13] MEDS: PANTOPRAZOLE 20MG TABLET PO SCH (05:10)
[2020-05-13] MEDS: ACETAMINOPHEN 325 MG TABLET PO PRN ×2 (05:10→17:36)
[2020-05-13] MEDS: HEPARIN 5,000 UNITS/ML, 1ML SQ SCH ×2 (05:10→17:01)
[2020-05-13 07:19] VITALS: BP 99/69
[2020-05-13] MEDS: SEVELAMER CARBONATE 800MG TAB PO SCH ×3 (08:00→17:35)
[2020-05-13 08:15] VITALS: BP 138/64
[2020-05-13] MEDS: ISONIAZID 300 MG TABLET PO SCH (08:58)
[2020-05-13] MEDS ORDERED: AMLODIPINE 10 MG TAB PO SCH (09:00)
[2020-05-13] MEDS ORDERED: LISINOPRIL 40 MG TABLET PO SCH (09:00)
[2020-05-13] MEDS: ASPIRIN 325 MG TABLET EC PO SCH ×3 (16:00→20:45)
[2020-05-13] MEDS: PYRIDOXINE (Vitamin B6) 50MG TAB PO SCH (17:35)
[2020-05-13 17:37] VITALS: BP 123/73
[2020-05-13 18:53] VITALS: BP 136/79
[2020-05-14] MEDS: HEPARIN 5,000 UNITS/ML, 1ML SQ SCH ×2 (00:02→08:00)
[2020-05-14 00:03] VITALS: BP 115/71
[2020-05-14 05:14] LABS: BASOPHILS % (AUTO) 1 % (0-1); EOSINOPHILS % (AUTO) 2 % (1-7); LYMPHOCYTES % (AUTO) 16 % (22-44); MEAN CORPUSCULAR HEMOGLOBIN 32.4 pg (27.5-34.5); MEAN CORPUSCULAR HGB CONC 34.6 g/dL (33.2-36.2); MEAN PLATELET VOLUME 6.8 fL (7.4-10.4); MONOCYTES % (AUTO) 10 % (2-9); NEUTROPHILS % (AUTO) 72 % (42-75); PLATELET COUNT 190 x10^3/uL (130-400); RED BLOOD COUNT 2.55 x10^6/uL (4.38-5.82); RED CELL DISTRIBUTION WIDTH 16.3 % (9.4-14.8)
[2020-05-14 05:18] LABS: MD NO
[2020-05-14 05:27] LABS: CALCIUM 8.4 mg/dL (8.5-10.1); CHLORIDE 100 mmol/L (98-107)
[2020-05-14 05:31] LABS: ANION GAP 9 mmol/L (5-15); CREATININE 8.93 mg/dL (0.7-1.3)
[2020-05-14] MEDS: PANTOPRAZOLE 20MG TABLET PO SCH (05:39)
[2020-05-14] MEDS: PYRIDOXINE (Vitamin B6) 50MG TAB PO SCH (08:45)
[2020-05-14] MEDS: ISONIAZID 300 MG TABLET PO SCH (08:45)
[2020-05-14] MEDS: ASPIRIN 325 MG TABLET EC PO SCH (08:45)
[2020-05-14] MEDS: SEVELAMER CARBONATE 800MG TAB PO SCH ×2 (08:45→12:04)
[2020-05-14 09:30] VITALS: BP 113/63
[2020-05-14 14:47] VITALS: BP 114/68
[2020-05-14] MEDS ORDERED: IBUP-1221 PO (15:02)
[2020-05-14] MEDS ORDERED: ASPI-1026 PO (15:02)
[2020-05-14] MEDS ORDERED: PANT20TA4 PO (15:02)
== END 2020-05-14 15:55 | disposition home or self-care (01) | DRG 280 ==
LOC: ED 18:31 → EDIP 20:57 → 5SO 20:59 → DCLOUNGE 05-11 13:57 → 5SO 05-11 14:28 → CCU 05-11 14:32 → 5SO 05-12 10:41 → DCLOUNGE 05-14 15:47
PROVIDERS: ADMIT Family Medicine; ATTEND Internal Medicine
PROC: B2151ZZ Fluoroscopy of Left Heart using Low Osmolar Contrast (ICD-10-PCS; principal; 2020-05-10)
PROC: B2111ZZ Fluoroscopy of Multiple Coronary Arteries using Low Osmolar Contrast (ICD-10-PCS; 2020-05-10)
PROC: 4A023N7 Measurement of Cardiac Sampling and Pressure, Left Heart, Percutaneous Approach (ICD-10-PCS; 2020-05-10)
PROC: 5A1D70Z Performance of Urinary Filtration, Intermittent, Less than 6 Hours Per Day (ICD-10-PCS; 2020-05-11)
PROC: 5A1D70Z Performance of Urinary Filtration, Intermittent, Less than 6 Hours Per Day (ICD-10-PCS; 2020-05-11)
DX: I30.9 Acute pericarditis, unspecified (principal); N18.6 End stage renal disease; I21.19 ST elevation (STEMI) myocardial infarction involving other coronary artery of inferior wall; I50.42 Chronic combined systolic (congestive) and diastolic (congestive) heart failure; E87.1 Hypo-osmolality and hyponatremia; I13.2 Hypertensive heart and chronic kidney disease with heart failure and with stage 5 chronic kidney disease, or end stage renal disease; D63.1 Anemia in chronic kidney disease; E04.1 Nontoxic single thyroid nodule; E87.5 Hyperkalemia; I25.10 Atherosclerotic heart disease of native coronary artery without angina pectoris; I95.9 Hypotension, unspecified; N25.0 Renal osteodystrophy; Z87.891 Personal history of nicotine dependence; Z99.2 Dependence on renal dialysis; Z79.899 Other long term (current) drug therapy; Z79.891 Long term (current) use of opiate analgesic; Z79.01 Long term (current) use of anticoagulants; Z84.1 Family history of disorders of kidney and ureter
CPT/HCPCS: 36415; 93458; 96374; 96376; 99291; J3490; 71045; 71275; 74174; 80047; 80048; 80053; 83690; 83735; 84100; 84484; 85025; 85610; 85651; 85730; 86140; 87081; 93005; 93308; 93321; 93325; 99156; 99157; C1760; C1769; C1894; G0378; J0583; J0882; J1644; J1885; J2250; J3010; Q9967; J2270